=== PATIENT | female | born 1970 | race American Indian/Alaskan Native ===

== ENCOUNTER 2020-10-10 12:11 | Emergency (ER) | payer SELFPAY ==
--- NOTE | 2020-10-10 14:23 | Event Note ---
ED Screening Note ED Screening Note: dizziness/lightheaded for two days states her BP has been elevated for two days states she tried to give plasma and her BP was too high does not have a PCP states she went to plasma donation last week and her bp was normal PMHx none no allergies to meds no daily meds ate increased sodium over LNMP: currently on cycle This initial assessment/diagnostic orders/clinical plan/treatment(s) is/are subject to change based on patients health status, clinical progression and re-assessment by fellow clinical providers in the ED. Further treatment and workup at subsequent clinical providers discretion. Patient/guardian urged not to elope from the ED as their condition may be serious if not clinically assessed and managed. Initial orders include: labs, UA, EKG
[2020-10-10 15:05] LABS: Basophils % (Auto) 0.7 % (0.0-1.8); Eosinophils # (Auto) 0.2 K/mm3 (0.0-0.4); Hematocrit 35.4 % (30.3-42.9); Hemoglobin 11.1 gm/dl (10.1-14.3); Lymphocytes # (Auto) 1.4 K/mm3 (1.2-5.4); Lymphocytes % (Auto) 27.1 % (13.4-35.0); Mean Corpuscular HGB Conc 31 % (30-34); Mean Corpuscular Volume 81 fl (79-97); Monocytes # (Auto) 0.5 K/mm3 (0.0-0.8); Monocytes % (Auto) 10.6 % (0.0-7.3); Platelet Count 243 K/mm3 (140-440); Red Blood Count 4.36 M/mm3 (3.65-5.03); Red Cell Distribution Width 18.9 % (13.2-15.2)
[2020-10-10 15:37] LABS: Alanine Aminotransferase 16 units/L (7-56); Albumin 3.7 g/dL (3.9-5); BUN/Creatinine Ratio 11; Blood Urea Nitrogen 9 mg/dL (7-17); Calcium 9.3 mg/dL (8.4-10.2); Hemolysis Index 9
[2020-10-10 16:25] LABS: Bilirubin,Urine NEG (Negative); Blood,Urine LG (Negative); Color,Urine Red (Yellow); Urobilinogen,Urine < 2.0 mg/dL (<2.0)
[2020-10-10 16:34] LABS: RBC,Urine > 182.0 /HPF (0.0-6.0)
[2020-10-10 20:26] VITALS: BP 180/74
[2020-10-10] MEDS ORDERED: cefTRIAXone/NS 1 GM/50 ML 1 GM/50 ML BAG IV ONE (20:52)
[2020-10-10] MEDS ORDERED: SODIUM CHLORIDE 0.9% 1000 ML 1,000 ML IV ONE (20:52)
[2020-10-10] MEDS ORDERED: KETOROLAC 30 MG/1 ML INJ IV ONE (20:53)
--- NOTE | 2020-10-10 22:09 | Cat Scan Report ---
CT ABDOMEN AND PELVIS WITHOUT CONTRAST INDICATION / CLINICAL INFORMATION: RENAL STONE PROTOCOL!! Pt complains of dizziness and lightheaded. TECHNIQUE: Axial CT images were obtained through the abdomen and pelvis without IV contrast. All CT scans at [facility] are performed using CT dose reduction for ALARA by means of automated exposure control. COMPARISON: None available. FINDINGS: LOWER CHEST: No significant abnormality. LIVER: No significant abnormality. GALLBLADDER: No significant abnormality. BILE DUCTS: No significant abnormality. PANCREAS: No significant abnormality. SPLEEN: No significant abnormality. ADRENALS: 2.2 cm left adrenal adenoma (HU1) right adrenal is unremarkable.. RIGHT KIDNEY / URETER: No significant abnormality. LEFT KIDNEY / URETER: No significant abnormality. STOMACH / SMALL BOWEL: No significant abnormality. COLON: Mild colonic diverticulosis. No evidence of diverticulitis. APPENDIX: No significant abnormality. PERITONEUM: No free fluid. No free air. No fluid collection. LYMPH NODES: No significant adenopathy. AORTA / ARTERIES: Mild atherosclerotic calcification without acute abnormality. IVC / VEINS: 7 mm calcified phlebolith noted in the right retroperitoneum anterior to the iliopsoas, located lateral to the ureter. Phleboliths are noted throughout the pelvis. URINARY BLADDER: No significant abnormality. REPRODUCTIVE ORGANS: Significantly enlarged uterus measures 14.9 x 9.5 x 11.9 cm. The uterine parench yma is also globular with multiple uterine fibroids, some of which are exophytic, the largest measuri ng 4.8 x 3.6 cm. ADDITIONAL FINDINGS: None. SKELETAL SYSTEM: No significant abnormality. IMPRESSION: 1. Significantly enlarged and globular uterus measures 14.9 x 9.5 x 11.9 cm with multiple uterine fib roids, the largest measuring 4.8 x 3.6 cm. Nonemergent dedicated pelvic ultrasound may be helpful for further evaluation. 2. No acute inflammatory changes are noted of the abdomen or pelvis. Signer Name: Jeevan Puentes MD Signed: 10/10/2020 10:05 PM Workstation Name: [id number]
--- NOTE | 2020-10-10 22:55 | Emergency Department Report ---
ED General Adult HPI - General Chief complaint: High BP Stated complaint: LIGHT HEADED/HBP X2DAYS Time Seen by Provider: 10/10/20 14:21 Source: patient Mode of arrival: Ambulatory Limitations: No Limitations - History of Present Illness Initial comments: Patient is a 50-year-old -[place] female who presents for dizziness lightheadedness and urinary frequency and urgency x2 days. Patient denies fevers or chills, denies hematuria, there is been no nausea vomiting. Patient denies history of renal stones. Denies diabetes or hypertension diagnosis. There is no chest pain or shortness of breath. Symptoms are exacerbated by voiding and movement. Symptoms are relieved by rest. Patient does endorse increased EtOH during holiday season. Severity scale (0 -10): 3 - Related Data Previous Rx's Medication Instructions Recorded Last Taken Type Ibuprofen [Motrin 800 MG tab] 800 mg PO Q8HR PRN #30 tablet 10/10/20 Unknown Rx Nitrofurantoin [place]/M-Cryst 100 mg PO BID 7 Days #14 capsule 10/10/20 Unknown Rx [Macrobid CAP] Allergies Allergy/AdvReac Type Severity Reaction Status Date / Time No Known Allergies Allergy Unverified 10/10/20 12:43 ED Review of Systems ROS: Stated complaint: LIGHT HEADED/HBP X2DAYS Other details as noted in HPI Constitutional: malaise. denies: chills, fever Eyes: denies: eye pain, eye discharge, vision change ENT: denies: ear pain, throat pain Respiratory: denies: cough, shortness of breath, wheezing Cardiovascular: denies: chest pain, palpitations Endocrine: no symptoms reported Gastrointestinal: abdominal pain (superpubic ). denies: nausea, diarrhea Genitourinary: denies: urgency, dysuria, discharge Musculoskeletal: back pain (left flank ) Skin: denies: rash, lesions Neurological: denies: headache, weakness, paresthesias Psychiatric: denies: anxiety, depression Hematological/Lymphatic: denies: easy bleeding, easy bruising ED Past Medical Hx - Past Medical History Previous Medical History?: No - Surgical History Past Surgical History?: No - Social History Smoking Status: Never Smoker Substance Use Type: Marijuana - Medications Home Medications: Home Medications Medication Instructions Recorded Confirmed Last Taken Type Ibuprofen [Motrin 800 MG tab] 800 mg PO Q8HR PRN #30 tablet 10/10/20 Unknown Rx Nitrofurantoin [place]/M-Cryst 100 mg PO BID 7 Days #14 capsule 10/10/20 Unknown Rx [Macrobid CAP] ED Physical Exam - General Limitations: No Limitations General appearance: alert, in no apparent distress - Head Head exam: Present: atraumatic, normocephalic - Eye Eye exam: Present: normal appearance, EOMI Pupils: Present: normal accommodation - ENT ENT exam: Present: mucous membranes moist - Neck Neck exam: Present: normal inspection - Respiratory Respiratory exam: Present: normal lung sounds bilaterally. Absent: respiratory distress, chest wall tenderness - Cardiovascular Cardiovascular Exam: Present: regular rate, normal rhythm, normal heart sounds. Absent: systolic murmur, diastolic murmur, rubs, gallop - GI/Abdominal GI/Abdominal exam: Present: soft, normal bowel sounds. Absent: distended, tenderness, guarding, rebound, rigid, bruit, hernia - Rectal Rectal exam: Present: deferred - Extremities Exam Extremities exam: Present: normal inspection, full ROM. Absent: tenderness - Back Exam Back exam: Present: normal inspection, full ROM, tenderness, CVA tenderness (L). Absent: vertebral tenderness, rash noted - Neurological Exam Neurological exam: Present: alert, oriented X3, CN II-XII intact, normal gait - Psychiatric Psychiatric exam: Present: normal affect, normal mood - Skin Skin exam: Present: warm, dry, intact, normal color. Absent: rash ED Course Vital Signs 10/10/20 10/10/20 12:41 20:25 Temperature 97.9 F Pulse Rate 60 59 L Respiratory 14 17 Rate Blood Pressure 181/87 Blood Pressure 180/74 [Right] O2 Sat by Pulse 97 98 Oximetry ED Medical Decision Making - Lab Data Result diagrams: 10/10/20 14:35 10/10/20 14:35 Labs 10/10/20 10/10/20 10/10/20 14:35 14:35 15:48 WBC 5.1 RBC 4.36 Hgb 11.1 Hct 35.4 MCV 81 MCH 25 L MCHC 31 RDW 18.9 H Plt Count 243 Lymph % (Auto) 27.1 [place] % (Auto) 10.6 H Eos % (Auto) 3.0 Baso % (Auto) 0.7 Lymph # (Auto) 1.4 [place] # (Auto) 0.5 Eos # (Auto) 0.2 Baso # (Auto) 0.0 Seg Neutrophils % 58.6 Seg Neutrophils # 3.0 Sodium 136 L Potassium 3.4 L Chloride 102.5 Carbon Dioxide 27 Anion Gap 10 BUN 9 Creatinine 0.8 Estimated GFR > 60 BUN/Creatinine Ratio 11 Glucose 94 Calcium 9.3 Magnesium 2.00 Total Bilirubin 0.20 AST 15 ALT 16 Alkaline Phosphatase 67 Total Creatine Kinase 107 Total Protein 6.5 Albumin 3.7 L Albumin/Globulin Ratio 1.3 Urine Color Red Urine Turbidity Clear Urine pH 6.0 Ur Specific [place] 1.011 Urine Protein 100 mg/dl Urine Glucose (UA) Neg Urine Ketones Neg Urine Blood Lg Urine Nitrite Neg Urine Bilirubin Neg Urine Urobilinogen < 2.0 Ur Leukocyte Esterase Neg Urine WBC (Auto) 121.0 H Urine RBC (Auto) > 182.0 Urine Yeast (Budding) 2+ - Radiology Data Radiology results: report reviewed, image reviewed Findings Reporting MD: Jeevan Puentes Dictation Time: October 10, 2020 21:05 Transfill Technician: Not available Medical Office Receptionist Assistant Date: CT ABDOMEN AND PELVIS WITHOUT CONTRAST INDICATION / CLINICAL INFORMATION: RENAL STONE PROTOCOL!! Pt complains of dizziness and lightheaded. TECHNIQUE: Axial CT images were obtained through the abdomen and pelvis without IV contrast. All CT scans at this location are performed using CT dose reduction for ALARA by means of automated exposure control. COMPARISON: None available. FINDINGS: LOWER CHEST: No significant abnormality. LIVER: No significant abnormality. GALLBLADDER: No significant abnormality. BILE DUCTS: No significant abnormality. PANCREAS: No significant abnormality. SPLEEN: No significant abnormality. ADRENALS: 2.2 cm left adrenal adenoma (HU1) right adrenal is unremarkable.. RIGHT KIDNEY / URETER: No significant abnormality. LEFT KIDNEY / URETER: No significant abnormality. STOMACH / SMALL BOWEL: No significant abnormality. COLON: Mild colonic diverticulosis. No evidence of diverticulitis. APPENDIX: No significant abnormality. PERITONEUM: No free fluid. No free air. No fluid collection. LYMPH NODES: No significant adenopathy. AORTA / ARTERIES: Mild atherosclerotic calcification without acute abnormality. IVC / VEINS: 7 mm calcified phlebolith noted in the right retroperitoneum anterior to the iliopsoas, located lateral to the ureter. Phleboliths are noted throughout the pelvis. URINARY BLADDER: No significant abnormality. REPRODUCTIVE ORGANS: Significantly enlarged uterus measures 14.9 x 9.5 x 11.9 cm. The uterine parenchyma is also globular with multiple uterine fibroids, some of which are exophytic, the largest measuring 4.8 x 3.6 cm. ADDITIONAL FINDINGS: None. SKELETAL SYSTEM: No significant abnormality. IMPRESSION: 1. Significantly enlarged and globular uterus measures 14.9 x 9.5 x 11.9 cm with multiple uterine fibroids, the largest measuring 4.8 x 3.6 cm. Nonemergent dedicated pelvic ultrasound may be helpful for further evaluation. [facility] [address] [place] [address] P [phone] F [phone] [facility] - Report exported on Oct 10, 2020 21:50: 57 -[id number] - Page 2 of 2 2. No acute inflammatory changes are noted of the abdomen or pelvis. Signer Name: Jeevan Puentes MD Signed: 10/10/2020 9:05 PM Workstation Name: [id number] - Medical Decision Making Patient advises symptoms resolved with medication given in ED. Repeat vital signs noted as improved. UA positive for leukocytes red blood cells bacteria. CT abdomen pelvis no renal stones, bilateral fibroids, there is no vaginal bleeding no fevers or chills no nausea vomiting. Plan DC to home with prescriptions, follow-up with PCP, follow-up with CHEMICAL PLANT TECHNICAL DIRECTOR, patient verbalized agreement and understanding with discharge plan. Patient will be DC'd home in stable condition at this time. Critical care attestation.: If time is entered above; I have spent that time in minutes in the direct care of this critically ill patient, excluding procedure time. ED Disposition Clinical Impression: Fibroids UTI (urinary tract infection) Qualifiers: Urinary tract infection type: acute cystitis Hematuria presence: without hematuria Qualified Code(s): N30.00 - Acute cystitis without hematuria Disposition: DC-01 TO HOME OR SELFCARE Is pt being admited?: No Does the pt Need Aspirin: No Condition: Stable Instructions: Urinary Tract Infection, Adult, Uterine Fibroids Prescriptions: Nitrofurantoin [place]/M-Cryst [Macrobid CAP] 100 mg PO BID 7 Days #14 capsule Ibuprofen [Motrin 800 MG tab] 800 mg PO Q8HR PRN #30 tablet PRN Reason: pain Referrals: LEATHA RUDOLPH MD [Staff Physician] - 3-5 Days FELECIA KIMBROUGH MD [Staff Physician] - 3-5 Days Forms: Work/School Release Form(ED) Time of Disposition: 22:59
== END 2020-10-10 23:25 | disposition home or self-care (01) ==
LOC: ED 12:11
DX: D21.9 Benign neoplasm of connective and other soft tissue, unspecified (principal); N39.0 Urinary tract infection, site not specified; F12.10 Cannabis abuse, uncomplicated; Z79.899 Other long term (current) drug therapy
CPT/HCPCS: 36415; 74176; 80053; 81001; 82550; 83735; 85025; 93005; 96365; 96375; 99284; J0696; J1885; J7030